=== PATIENT | male | born 1980 | race African-American/Black ===

== ENCOUNTER 2025-10-10 22:37 | Emergency (ER) | payer MEDICAID ==
[~2025-10-10] VITALS: Ht 170.2 cm; Wt 80.9 kg
[2025-10-10 22:40] VITALS: TEMP 97.5
[2025-10-10] MEDS: SODIUM CHLORIDE 0.9% 1,000 ML IV ONE (23:38)
[2025-10-11 00:38] LABS: PH,URINE DRUG SCREEN 6.5 (5.0-8.0)
[2025-10-11 00:53] LABS: ALCOHOL, URINE DRUG SCREEN NEGATIVE (NEGATIVE); AMPHET/METH SCREEN,URINE NEGATIVE (NEGATIVE); BARBITURATE SCREEN, URINE NEGATIVE (NEGATIVE); CANNABINOID SCREEN,URINE POSITIVE (NEGATIVE); COCAINE SCREEN,URINE NEGATIVE (NEGATIVE); METHADONE SCREEN, URINE NEGATIVE (NEGATIVE)
[2025-10-11 01:10] VITALS: BP 145/90; PULSE 88; RESP 14; O2SAT 98
== END 2025-10-11 01:28 | disposition home or self-care (01) ==
LOC: EMS 22:37
DX: I10 Essential (primary) hypertension (principal); R41.0 Disorientation, unspecified; F17.210 Nicotine dependence, cigarettes, uncomplicated
CPT/HCPCS: 99284; 96360; 96361; 93005; 80307; J7030